=== PATIENT | female | born 1970 | race Caucasian/White ===

== ENCOUNTER 2021-04-27 13:24 | Inpatient (IN) | payer OTHER ==
[~2021-04-27] VITALS: Ht 167.6 cm; Wt 144.2 kg
[~2021-04-27 13:24] MED LIST: MULTIVITAMINS1 EAC2 PO
[2021-04-27 15:52] LABS: BASOPHIL 0.7 % (0-2); EOSINOPHIL 0.5 % (0-5); HCT 41.8 % (37.0-47.0); HGB 12.9 g/dl (12.5-16.0); LYMPHOCYTE 37.3 % (15-48); MCH 28.1 pg (25.0-31.0); MCHC 30.9 g/dL (32.0-36.0); MCV 91.1 fL (78.0-100.0); MONOCYTE 6.5 % (0-12); MPV 9.2 fL (6.0-9.5); NEUTROPHIL 53.1 % (41-80); NRBC 0; PLT 293 K/uL (150-400); RBC 4.59 M/uL (4.20-5.40); RDW 12.9 % (11.5-14.0); WBC 4.2 K/uL (4.0-10.5)
[2021-04-27 16:06] LABS: PRO-BNP 24 pg/mL (<125)
[2021-04-27 16:12] LABS: ALBUMIN 3.3 g/dL (3.4-5.0); BILIRUBIN - TOTAL 0.6 mg/dL (0.2-1.0); BUN/CREAT RATIO (CALC) 14.7 RATIO; C-REACTIVE PROTEIN 3.5 mg/dL (<=0.90); CREATININE 0.68 mg/dL (0.51-0.95); GLOBULIN (CALCULATION) 3.4 g/dL; POTASSIUM 3.9 mmol/L (3.5-5.1); TOTAL PROTEIN 6.7 g/dL (6.4-8.2)
[2021-04-27 16:40] LABS: LACTIC ACID 1.6 mmol/L (0.4-1.9)
[2021-04-28 06:03] LABS: BASOPHIL 0.3 % (0-2); EOSINOPHIL 0 % (0-5); HCT 38.5 % (37.0-47.0); HGB 12.2 g/dl (12.5-16.0); LYMPHOCYTE 29.7 % (15-48); MCHC 31.7 g/dL (32.0-36.0); MCV 88.5 fL (78.0-100.0); MONOCYTE 5.5 % (0-12); MPV 8.9 fL (6.0-9.5); NEUTROPHIL 59.5 % (41-80); NRBC 0; PLT 320 K/uL (150-400); RBC 4.35 M/uL (4.20-5.40); RDW 12.6 % (11.5-14.0); WBC 3.4 K/uL (4.0-10.5)
[2021-04-28 06:57] LABS: ALBUMIN 3.3 g/dL (3.4-5.0); BILIRUBIN - TOTAL 0.6 mg/dL (0.2-1.0); BUN/CREAT RATIO (CALC) 17.2 RATIO; C-REACTIVE PROTEIN 2.1 mg/dL (<=0.90); CREATININE 0.58 mg/dL (0.51-0.95); PHOSPHORUS 2.9 mg/dL (2.6-4.7); POTASSIUM 4.3 mmol/L (3.5-5.1); TOTAL PROTEIN 7.3 g/dL (6.4-8.2)
[2021-04-28] MEDS ORDERED: DEXAMETHASONE 2M2 MG PO (16:55)
--- NOTE | 2021-04-29 10:58 | NUR ---
04/29/21 A referral was made to [facility] for 02 per patient choice.
== END 2021-04-29 13:00 | disposition home or self-care (01) | DRG 177 ==
LOC: FER 13:24 → FMS 17:50
PROVIDERS: Emergency Medicine; Nurse Practitioner; ADMIT Internal Medicine
PROC: XW033E5 Introduction of Remdesivir Anti-infective into Peripheral Vein, Percutaneous Approach, New Technology Group 5 (ICD-10-PCS; principal; 2021-04-27)
PROC: 8E0ZXY6 Isolation (ICD-10-PCS; 2021-04-27)
DX: U07.1 COVID-19 (principal); J12.82 Pneumonia due to coronavirus disease 2019; J96.01 Acute respiratory failure with hypoxia; M79.7 Fibromyalgia; M19.90 Unspecified osteoarthritis, unspecified site; Z88.2 Allergy status to sulfonamides; Z90.49 Acquired absence of other specified parts of digestive tract; Z90.89 Acquired absence of other organs; Z98.51 Tubal ligation status; Z86.73 Personal history of transient ischemic attack (TIA), and cerebral infarction without residual deficits; Z87.442 Personal history of urinary calculi; Z87.891 Personal history of nicotine dependence; E66.9 Obesity, unspecified
CPT/HCPCS: 36415; 36600; 71250; 80053; 82728; 82803; 83605; 83615; 83735; 83880; 84100; 84145; 84484; 85025; 85379; 86140; 93005; 94010; 94640; 94667; 94668; C9399; J1100; J1650; J2405; J7030; J7050; J8540; U0002

== ENCOUNTER 2022-05-03 10:39 | Emergency (ER) | payer OTHER ==
[~2022-05-03 10:39] MED LIST changes: +DEXAMETHASONE 2M2 MG PO
== END 2022-05-03 16:04 | disposition left against medical advice (07) ==
LOC: FER 10:39
DX: M25.561 Pain in right knee (principal); Z53.21 Procedure and treatment not carried out due to patient leaving prior to being seen by health care provider